=== PATIENT | female | born 1940 | race Caucasian/White ===

== ENCOUNTER 2020-01-05 21:28 | Inpatient (IN) | payer OTHER, MEDICARE, BC ==
[~2020-01-05] VITALS: Ht 170.2 cm; Wt 50.9 kg
--- NOTE | 2020-01-05 21:10 | NUR ---
Pt. arrived on unit at 2109 by EMS. Pain level is 8/10, on 2L nasal cannula. Call light within reach with bed in lowest position. Will continue to monitor.
[2020-01-05] MEDS ORDERED: ONDANSETRON PF 4 MG/2 ML VIAL. IVP PRN (22:30)
[2020-01-05] MEDS ORDERED: MORPHINE SULFATE 2 MG/ML VIAL. IV PRN (22:30)
[2020-01-05] MEDS: oxyCODONE/APAP 10/325 1 TAB TABLET PO PRN (23:02)
--- NOTE | 2020-01-05 23:02 | NUR ---
Pt. only wanted half of oxycodone. states she doesn't like taking pills
[2020-01-06 03:06] VITALS: BP 111/57
[2020-01-06] MEDS ORDERED: PSEU120T9 PO (04:54)
[2020-01-06] MEDS ORDERED: ACET325T21 PO (04:54)
[2020-01-06 05:43] LABS: BASO % 0 % (0-3); EOS % 0 % (0-3); HEMATOCRIT 34.5 % (36.0-47.0); HEMOGLOBIN 11.8 g/dL (12.0-15.5); LYMPH # 1.1 x10^3/uL (1.0-4.8); LYMPH % 11 % (24-48); MEAN CORPUSCULAR HEMOGLOBIN 32 pg (25-35); MEAN CORPUSCULAR HGB CONC 34 g/dL (31-37); MEAN CORPUSCULAR VOLUME 92 fL (79-100); MONO # 0.8 x10^3/uL (0.0-1.1); MONO % 7 % (0-9); NEUT # 8.9 x10^3/uL (1.8-7.7); NEUT % 82 % (31-73); PLATELET COUNT 266 x10^3/uL (140-400); RED BLOOD COUNT 3.75 x10^6/uL (3.50-5.40); RED CELL DISTRIBUTION WIDTH 13.2 % (11.5-14.5); WHITE BLOOD COUNT 10.9 x10^3/uL (4.0-11.0)
[2020-01-06 06:01] LABS: CALCIUM 8.6 mg/dL (8.5-10.1); CREATININE 1.1 mg/dL (0.6-1.0); GFR 47.8; MAGNESIUM 2.3 mg/dL (1.8-2.4); POTASSIUM 4.5 mmol/L (3.5-5.1)
--- NOTE | 2020-01-06 07:00 | NUR ---
Dr. Chowdhury from [facility] removed piece of glass that was sutured into incision. Incision was re-sutured. Will continue to monitor patient.
[2020-01-06 07:05] VITALS: BP 140/56
--- NOTE | 2020-01-06 07:43 | PDOC ---
Date of Service: DATE: 01/06/20 TIME: 07:37 Progress Note: FOREIGN BODY REMOVAL: Upon reviewing of CT scan of Head, there is a foreign body identified inside the wound on left frontatemporal area. Discussed with the ED physician at [facility], no foreign body was removed then. The sutures wound was evaluated, two sutures were removed. The wound was anesthesized with 6 ml of 1% lidocaine plain. A Jo knot picker cloth was used to probe the wound. A piece of glass was found and removed without any problem. The wound was then closed with two sutures, 4-0-nylon. NO bleeding. Patient tolerated the procedure well. Discussed with patient RN about the procedure. Justifications for Admission Other Justification DANILO SLAUGHTER DO Jan 06, 2020 07:43
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
--- NOTE | 2020-01-06 09:14 | RAD ---
CHEST AP ONLY Clinical History: Reason: pneumothorax / Spl. Instructions: / History: Technique: AP view of the chest was obtained at 01/06/2020 5:00 AM. Comparison: January 05, 2020. Findings: The cardiomediastinal silhouette is normal. The pulmonary vasculature is normal. There is marked left chest wall subcutaneous emphysema. There is a subtle lucency in the left lung apex. Impression: 1. Marked left chest wall subcutaneous emphysema. 2. Probable tiny left apical pneumothorax. No change. Electronically signed by: Prasad Devries III, MD (01/06/2020 9:11 AM) [id number]
[2020-01-06] MEDS: oxyCODONE/APAP 10/325 1 TAB TABLET PO PRN ×2 (09:32→20:46)
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
[2020-01-06 11:05] VITALS: BP 115/49
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
[2020-01-06 15:05] VITALS: BP 103/46
--- NOTE | 2020-01-06 16:47 | PDOC ---
PULMONARY PROGRESS NOTES DATE: 01/06/20 TIME: 16:46 Vitals Vital Signs Date Time Temp Pulse Resp B/P (MAP) Pulse Ox O2 Delivery O2 Flow Rate FiO2 01/06/20 15:05 98.3 76 19 103/46 (65) 99 Nasal Cannula 98.3 01/06/20 10:35 2.0 Labs Laboratory Tests Test 01/06/20 04:20 01/06/20 04:30 White Blood Count 10.9 x10^3/uL (4.0-11.0) Red Blood Count 3.75 x10^6/uL (3.50-5.40) Hemoglobin 11.8 g/dL (12.0-15.5) Hematocrit 34.5 % (36.0-47.0) Mean Corpuscular Volume 92 fL (79-100) Mean Corpuscular Hemoglobin 32 pg (25-35) Mean Corpuscular Hemoglobin Concent 34 g/dL (31-37) Red Cell Distribution Width 13.2 % (11.5-14.5) Platelet Count 266 x10^3/uL (140-400) Neutrophils (%) (Auto) 82 % (31-73) Lymphocytes (%) (Auto) 11 % (24-48) Monocytes (%) (Auto) 7 % (0-9) Eosinophils (%) (Auto) 0 % (0-3) Basophils (%) (Auto) 0 % (0-3) Neutrophils # (Auto) 8.9 x10^3/uL (1.8-7.7) Lymphocytes # (Auto) 1.1 x10^3/uL (1.0-4.8) Monocytes # (Auto) 0.8 x10^3/uL (0.0-1.1) Eosinophils # (Auto) 0.0 x10^3/uL (0.0-0.7) Basophils # (Auto) 0.0 x10^3/uL (0.0-0.2) Sodium Level 142 mmol/L (136-145) Potassium Level 4.5 mmol/L (3.5-5.1) Chloride Level 109 mmol/L (98-107) Carbon Dioxide Level 24 mmol/L (21-32) Anion Gap 9 (6-14) Blood Urea Nitrogen 20 mg/dL (7-20) Creatinine 1.1 mg/dL (0.6-1.0) Estimated GFR (Cockcroft-Gault) 47.8 Glucose Level 109 mg/dL (70-99) Calcium Level 8.6 mg/dL (8.5-10.1) Magnesium Level 2.3 mg/dL (1.8-2.4) Laboratory Tests Test 01/06/20 04:20 01/06/20 04:30 White Blood Count 10.9 x10^3/uL (4.0-11.0) Red Blood Count 3.75 x10^6/uL (3.50-5.40) Hemoglobin 11.8 g/dL (12.0-15.5) Hematocrit 34.5 % (36.0-47.0) Mean Corpuscular Volume 92 fL (79-100) Mean Corpuscular Hemoglobin 32 pg (25-35) Mean Corpuscular Hemoglobin Concent 34 g/dL (31-37) Red Cell Distribution Width 13.2 % (11.5-14.5) Platelet Count 266 x10^3/uL (140-400) Neutrophils (%) (Auto) 82 % (31-73) Lymphocytes (%) (Auto) 11 % (24-48) Monocytes (%) (Auto) 7 % (0-9) Eosinophils (%) (Auto) 0 % (0-3) Basophils (%) (Auto) 0 % (0-3) Neutrophils # (Auto) 8.9 x10^3/uL (1.8-7.7) Lymphocytes # (Auto) 1.1 x10^3/uL (1.0-4.8) Monocytes # (Auto) 0.8 x10^3/uL (0.0-1.1) Eosinophils # (Auto) 0.0 x10^3/uL (0.0-0.7) Basophils # (Auto) 0.0 x10^3/uL (0.0-0.2) Sodium Level 142 mmol/L (136-145) Potassium Level 4.5 mmol/L (3.5-5.1) Chloride Level 109 mmol/L (98-107) Carbon Dioxide Level 24 mmol/L (21-32) Anion Gap 9 (6-14) Blood Urea Nitrogen 20 mg/dL (7-20) Creatinine 1.1 mg/dL (0.6-1.0) Estimated GFR (Cockcroft-Gault) 47.8 Glucose Level 109 mg/dL (70-99) Calcium Level 8.6 mg/dL (8.5-10.1) Magnesium Level 2.3 mg/dL (1.8-2.4) Medications Active Scripts Medications Dose Route/Sig Max Daily Dose Days Date Category Sudafed 12-Hour (Pseudoephedrine Hcl) 120 Mg Tablet.er 120 Mg PO DAILY 01/06/20 Reported Acetaminophen 325 Mg Tablet 1 Tab PO PRN DAILY PRN 30 01/06/20 Reported Impression . Full consult dictated, repeat chest x-ray in the a.m., I do not appreciate a significant pneumothorax GLENYS SALDANA MD Jan 06, 2020 16:47
[2020-01-06 19:15] VITALS: BP 107/50
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
[2020-01-06 23:04] VITALS: BP 110/51
[2020-01-07 03:35] VITALS: BP 120/58
[2020-01-07] MEDS: oxyCODONE/APAP 10/325 1 TAB TABLET PO PRN ×2 (05:22→13:27)
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
[2020-01-07 07:00] VITALS: BP 120/53
--- NOTE | 2020-01-07 08:43 | RAD ---
EXAM: Chest, single view. HISTORY: Pneumothorax. COMPARISON: 01/06/2020 FINDINGS: A frontal view of the chest is obtained. There has been no change in a small left pneumothorax. There is stable to slight increased left lower lobe atelectasis or infiltrate. There is a stable trace left pleural effusion. There is left chest wall soft tissue emphysema. The heart is normal in size. There are few calcified granulomas. There is chronic deformity of the proximal right humerus. There is a displaced fracture of the distal left clavicle. IMPRESSION: 1. Stable small left pneumothorax. 2. Stable slight increased left lower lobe atelectasis or infiltrate and suspected trace left pleural effusion. 3. Left chest wall soft tissue emphysema. 4. Distal left clavicle fracture. Note is made that a left first rib fracture demonstrated on a recent CT is not well seen radiographically. Electronically signed by: Georgia Dennis MD (01/07/2020 8:41 AM) [id number]
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
[2020-01-07 11:00] VITALS: BP 137/53
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
[2020-01-07 15:00] VITALS: BP 112/65
[2020-01-07 19:00] VITALS: BP 146/57
[2020-01-07 23:00] VITALS: BP 125/57
[2020-01-08 03:00] VITALS: BP 158/68
[2020-01-08] MEDS: oxyCODONE/APAP 10/325 1 TAB TABLET PO PRN ×3 (03:13→21:23)
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
[2020-01-08 07:21] VITALS: BP 125/47
[2020-01-08 10:25] VITALS: BP 119/51
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
[2020-01-08 14:30] VITALS: BP 122/54
[2020-01-08 19:00] VITALS: BP 133/58
[2020-01-08 23:10] VITALS: BP 111/55
[2020-01-09 03:00] VITALS: BP 123/61
[2020-01-09 07:00] VITALS: BP 134/57
--- NOTE | 2020-01-09 09:50 | NUR ---
SW following. Discussed with RN, pt possibly can discharge home today. Pt requiring 2L of oxygen - which pt does not use at home. A 6 minute walk will be ordered prior to discharge. KILLIAN will continue to follow. Addendum: 01/09/20 at 1210 by BENI DAILY Discharge orders for home with home health. Pt accepted with [facility]. Pt did not have a PCP so Maureen Pearson RN arranged a new patient appointment with Dr. Burnett in 01/12 at 1415. RN notified. Addendum: 01/09/20 at 1438 by BENI DAILY Pt completed 6 minute walk, does not require oxygen at discharge. No further SW needs.
[2020-01-09] MEDS ORDERED: DOCUSATE SODIUM 100 MG CAPSULE. PO PRN (10:30)
[2020-01-09 11:00] VITALS: BP 142/59
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
--- NOTE | 2020-01-09 14:58 | RAD ---
Chest PA and lateral INDICATION: Follow-up pneumothorax COMPARISON: 01/07/2020 chest x-ray FINDINGS: Air-fluid level present on the AP view of the left chest, consistent with a hydropneumothorax. This is new from the previous examination. Small apical pneumothorax component to the hydropneumothorax is still visible on the AP view (annotated with an arrow). Lateral view shows a small pleural effusion. Lungs otherwise clear with increased lucency at the apices suggesting underlying COPD. Bones show chronic appearing wedge compression fracture at T7. No acute or aggressive appearing osseous lesions. Soft tissues show subcutaneous emphysema in the left hemithorax and arterial calcifications in the abdominal aorta. IMPRESSION: Left hydropneumothorax, better visualized than on the previous examination. No evidence of tension. Electronically signed by: Lawrence Lopez MD (01/09/2020 2:55 PM) [id number]
[2020-01-09 15:00] VITALS: BP 139/61
[2020-01-09] MEDS ORDERED: POLYETHYLENE GLYCOL 3350 17 GM PACKET. PO ONE (15:00)
--- NOTE | 2020-01-09 16:24 | NUR ---
pt is discharged home with home health at 1616 via wheelchair via KYLE Garcia. pt is in stable condition. pt has all belongings with her. pt received discharge instructions and prescriptions and stated she had no further questions for me.
--- NOTE | 2020-01-15 14:17 | DS ---
DATE OF DISCHARGE: 01/09/2020 ADMISSION DIAGNOSES: Fall with rib fractures, pneumothorax and clavicle fracture. DISCHARGE DIAGNOSIS: Resolving fractures secondary to falls. CONSULTATIONS: Pulmonary, Orthopedics and General Surgery. HOSPITAL COURSE: The patient is a pleasant 79-year-old female who fell and suffered multiple fractures of the ribs and clavicle and had a pneumothorax. She was admitted. The above consults were obtained. We did aggressive physical therapy, occupational therapy and pain management. Over the next few days, she returned to her home. We discharged to home with home health. DISPOSITION: Home with home health. ACTIVITY: As tolerated. DIET: Low sodium. MEDICATIONS: Please see the MRAD. TOTAL TIME: 34 minutes. NICOLLE RODRIGUEZ DO DR: WILL/hemanth JOB#: [id number] / [id number]
== END 2020-01-09 16:16 | disposition home health service (06) | DRG 199 ==
LOC: 4 NORTH 21:28
PROVIDERS: ADMIT Internal Medicine; ATTEND Internal Medicine
PROC: 0HQ0XZZ Repair Scalp Skin, External Approach (ICD-10-PCS; principal; 2020-01-05)
DX: J93.83 Other pneumothorax (principal); N17.0 Acute kidney failure with tubular necrosis; S22.32XA Fracture of one rib, left side, initial encounter for closed fracture; T79.7XXA Traumatic subcutaneous emphysema, initial encounter; S01.81XA Laceration without foreign body of other part of head, initial encounter; D64.9 Anemia, unspecified; M19.90 Unspecified osteoarthritis, unspecified site; S42.002A Fracture of unspecified part of left clavicle, initial encounter for closed fracture; V43.52XA Car driver injured in collision with other type car in traffic accident, initial encounter; Y92.410 Unspecified street and highway as the place of occurrence of the external cause
CPT/HCPCS: 36415; 71045; 71046; 80048; 83735; 85025; 94618; 97110-GP; 97116-GP; 97530-GP; G0378

== ENCOUNTER → 2020-08-29 | Outpatient (CLI) | payer OTHER, MEDICARE, BC ==
[~2020-08-29] MED LIST: ACET325T21 PO; PSEU120T9 PO
--- NOTE | 2020-08-29 14:02 | KCIC ---
Examination: MRI left clavicle without contrast HISTORY: History of nondisplaced fracture left clavicle COMPARISON: None available Technique: Multiplanar, multisequence MR imaging of the left clavicle performed without contrast Findings: There is nondisplaced fracture of the distal clavicle with no significant increased T2 signal about t he fracture site likely subacute or chronic fracture. The humerus head is within the glenoid. There is extension of fluid from the shoulder joint into the subacromial subdeltoid bursa, probably supraspinatus tendon tear, partially visualized. Partially visualized severe degenerative changes cer vical spine. IMPRESSION: 1.Nondisplaced fracture of the distal clavicle, probably subacute or chronic. Recommend CT for evalua tion of bony bridging. 2. Partially visualized extension of fluid from the shoulder joint into the subacromial subdeltoid bu rsa, probably supraspinatus tendon tear. MRI shoulder can be useful for further evaluation. Electronically signed by: Davin Rodriguez MD (08/29/2020 1:59 PM) [id number]
== END ==
LOC: KCIC MRI 12:32
PROVIDERS: ATTEND Physician Assistant
DX: S42.035D Nondisplaced fracture of lateral end of left clavicle, subsequent encounter for fracture with routine healing (principal); X58.XXXD Exposure to other specified factors, subsequent encounter
CPT/HCPCS: 71550

== ENCOUNTER → 2020-12-25 | Outpatient (CLI) | payer MEDICARE, OTHER, BC ==
--- NOTE | 2020-12-25 16:14 | RAD ---
MG DIAGNOSTICUNILAT MAMMO, MG DIAGNOSTICUNILAT MAMMO, US BREAST BIOPSY 1ST LESION, US BREAST BIOPSY A DDL LESION 12/25/2020 9:25 AM INDICATION: Left breast mass. COMPARISON: Left breast ultrasound 11/16/2020, mammogram 11/16/2020 PROCEDURE: Risks and benefits were discussed with the patient after which informed consent was obtain ed. Patient was placed supine on the examination table. Initially, previously seen sonographic breast mass at the 3:00 position, 5 cm from the nipple was isolated utilizing ultrasound. Skin was prepped and draped in normal sterile fashion after the skin was marked. 1 percent lidocaine was administered for superficial anesthetic effect. A 3 mm dermatotomy was performed. A 14-gauge biopsy device was ins erted into the left breast mass and 3 core biopsies were obtained. A coil shaped biopsy clip was plac ed at the site of biopsy. Subsequently, 2-D CC and MLO views of the left breast were obtained. The cl ip appeared separate from the previously identified mammographic mass. Subsequently, targeted sonographic evaluation of the left breast was performed at the 1:00 position, 4 cm from the nipple. At this time, the mass appears circumscribed and hypoechoic without internal fl ow. Attempt at cyst aspiration was performed utilizing an 18-gauge needle. The skin was prepped and d raped in normal sterile fashion. 3 mm dermatotomy was performed. Single attempt at aspiration with an 18-gauge needle was performed without any fluid aspirated. Mass felt solid and therefore two core bi opsy samples were obtained utilizing a 14-gauge biopsy device. An omega-shaped clip was placed at the site of second biopsy. Compression was applied for hemostasis. Subsequent to the mammogram with CC and MLO projections demonstrate a clip in the appropriate positio n correlating with the initial mammographic abnormality. IMPRESSION: Status post core needle biopsy of sonographic masses at the 3:00 position, 5 cm from the nipple at 1: 00 position, 4 cm from the nipple. BI-RADS category: 4; Suspicious Recommendations: Pathology results are pending. Once pathology results are available, an addendum tevin l be placed with associated recommendations. Electronically signed by: Isidra Marcelino MD (12/25/2020 4:12 PM) [id number]
--- NOTE | 2020-12-26 17:11 | PATHOLOGY ---
[facility] Accession Number: [id number] . 01 Material submitted: . PART A: breast - LEFT BREAST MASS 3:00 5 CMFN. Modifiers: left, 3:00 PART B: breast - LEFT BREAST TISSUE. Modifiers: left . 01 Clinical history: . LEFT BREAST MASS . 02 Diagnosis: A. Breast tissue, left breast mass 3:00, 5 cm from nipple needle biopsies: - Confluent stromal fibrosis. . B. Breast tissue, left breast mass 1:00, 4 cm from nipple needle biopsies: - Confluent stromal fibrosis. . (JPM:carlos; 12/26/2020) [facility] 12/26/2020 1248 Local . 02 Comment: Sections of the left breast mass 3:00 and left breast mass 1:00 needle biopsies appear similar. Both biopsies show confluent areas of stromal fibrosis containing a few scattered small ducts. There is no atypia or evidence of malignancy. (RUTHANNM:carlos; 12/26/2020) . 02 Electronically signed: . Leoncio Leiva MD, Pathologist NPI- [id number] . 01 Gross description: . A. The specimen is received in formalin, labeled "Lisa Haywood LT breast 300 5 cm fn" and consists of 2 pale landrum to white cylindrical needle core biopsies (ranging in length from 1.4 cm to 1.6 cm and each averaging 0.2 cm in diameter). The specimen is submitted in toto in A1-A2. The cold ischemic time is 2 minutes. The total time in formalin is 13 hours. . B. The specimen is received in formalin, labeled "Lisa Haywood LT breast 100 4 cm fn" and consists of 2 landrum-white cylindrical needle core biopsies (ranging in length from 1.4 cm to 1.8 cm and each averaging 0.2 cm in diameter). The specimen is submitted in toto in B1-B2. The cold ischemic time is 60 seconds. The total time in formalin is 13 hours. ([place]; 12/25/2020) DKA/DKA 12/25/2020 1551 Local . 02 Pathologist provided ICD-10: N60.32 . 02 CPT . 642348, 909981 Specimen Comment: A courtesy copy of this report has been sent to [phone] Specimen Comment: Report sent to Specimen Comment: A duplicate report has been generated due to demographic updates. Performed at: 01 [facility] [address], [place] [id number] MD Maurilio Dietz MD Phone: [phone] Performed at: 02 [facility] [address] [place], [place] [id number] MD Leoncio Leiva MD Phone: [phone]
== END ==
LOC: US 07:52
PROVIDERS: ATTEND Surgery
DX: N63.25 Unspecified lump in the left breast, overlapping quadrants (principal); N60.32 Fibrosclerosis of left breast
CPT/HCPCS: 19083; 19084; 77065; 88305; A4648; C1819